=== PATIENT | female | born 1935 | race Caucasian/White ===

== ENCOUNTER → 2017-08-30 | Outpatient (CLI) | payer OTHER | LOC: BHLMT 14:00 | PROVIDERS: ATTEND Internal Medicine Cardiovascular Disease | DX: I48.92 Unspecified atrial flutter (principal) | CPT/HCPCS: 93306-PO ==

== ENCOUNTER 2017-09-21 13:43 | Day surgery (SDC) | payer OTHER ==
[2017-09-21] MEDS ORDERED: diphenhydrAMINE 25 MG CAP PO ONE (13:50)
[2017-09-21] MEDS ORDERED: DIAZEPAM 5 MG TAB PO ONE (13:50)
[2017-09-21] MEDS ORDERED: NS 1,000 ML IV ONE (13:50)
[2017-09-21] MEDS ORDERED: FAMOTIDINE 20 MG TAB PO ONE (13:50)
--- NOTE | 2017-09-21 14:30 | CPEKG ---
Heart Rate: 93 RR Interval: 645 QRSD Interval: 84 QT Interval: 388 QTC Interval: 483 QRS [place]: -62 T Wave [place]: -40 EKG Severity - ABNORMAL ECG - EKG Impression: ATRIAL FLUTTER, A-RATE 263 EKG Impression: LEFT ANTERIOR FASCICULAR BLOCK EKG Impression: NONSPECIFIC T ABNORMALITIES, DIFFUSE LEADS Electronically Signed By: Christos Encinas 22-Sep-2017 12:02:17
--- NOTE | 2017-09-21 14:35 | PDHPUP ---
History & Physical Update H&P update statement: This history and physical update is based on an assessment of the patient which was completed after admission or registration (within 24 hours), but prior to the surgery/procedure. H&P update: H&P reviewed & patient examined, no change in patient's condition since H&P completed
[2017-09-21 14:39] LABS: INR 1.34 (0.83-1.16); PROTIME(PATIENT) 16.8 SEC (12.0-15.0)
[2017-09-21] MEDS ORDERED: PROPOFOL 200 MG/20 ML VIAL ONE (15:11)
[2017-09-21] MEDS ORDERED: NALOXONE HCL 0.4 MG/ML INJ IVP PRN (15:46)
--- NOTE | 2017-09-21 15:46 | PDANEPAE ---
ANE History of Present Illness 82 year old with PMH significant for atrial flutter and valvular disease with mitral, aortic, and tricuspid regurgitation. Echo 08/2017 with EF of 68%. Other medical problems include GERD, Grave's Disease, CHETNA. She has had anesthesia in the past without difficulty. ANE Past Medical History - Pulmonary History Hx Sleep Apnea: Yes ANE Review of Systems Review of Systems: ANE Patient History - Allergies Allergies/Adverse Reactions: aspirin Allergy (Verified 09/21/17 11:58) Penicillins Allergy (Verified 09/21/17 11:58) Sulfa (Sulfonamide Antibiotics) Allergy (Verified 09/21/17 11:58) sulfacetamide [From Sulfamide] Allergy (Verified 09/21/17 11:58) - Smoking Hx Smoking Status: Never smoked ANE Labs/Vital Signs - Labs Result Diagrams: 09/21/17 14:15 - Vital Signs Height: 165.1 cm Weight: 86.183 kg ANE Physical Exam - Airway Neck exam: short neck Mallampati Score: Class 4 Mouth exam: poor dentition, small mouth opening - Pulmonary Pulmonary: no respiratory distress - Cardiovascular Cardiovascular: irregularly irregular - ASA Status ASA Status: III
--- NOTE | 2017-09-21 15:46 | POSTANESTH ---
Post Anesthetic Evaluation Cardiovascular Status: Normal, Stable Respiratory Status: Normal, Stable Level of Consciousness/Mental Status: Can Participate in Eval Pain Control: Adequate, Prn Tx Ordered Nausea/Vomiting Control: Adequate, Prn Tx Ordered Complications Possibly Related to Anesthesia: None Noted
--- NOTE | 2017-09-21 15:47 | CPEKG ---
Heart Rate: 79 RR Interval: 759 P-R Interval: 220 QRSD Interval: 82 QT Interval: 412 QTC Interval: 473 P [place]: 36 QRS [place]: -40 T Wave [place]: -2 EKG Severity - ABNORMAL ECG - EKG Impression: SINUS RHYTHM EKG Impression: MULTIPLE VENTRICULAR PREMATURE COMPLEXES EKG Impression: FIRST DEGREE AV BLOCK EKG Impression: LEFT ANTERIOR FASCICULAR BLOCK EKG Impression: BORDERLINE T ABNORMALITIES, ANTERIOR LEADS Electronically Signed By: Christos Encinas 22-Sep-2017 12:01:58
--- NOTE | 2017-09-21 16:26 | PDTEE1 ---
SCAR Cardioversion Procedure Procedure: electrical cardioversion Indications: other (atrial flutter) Consent: signed and in chart Anticoagulation: xarelto Procedural Details: Pads were placed in anterior-posterior position. SCAR probe was advanced and standard images obtained. There is no evidence of left atrial or left atrial appendage thrombus. Synchronized cardioversion attempt #1: 200J Results: normal sinus rhythm Conclusions: successful SCAR cardioversion
== END 2017-09-21 16:55 | disposition home or self-care (01) ==
LOC: FCATH 13:43
PROVIDERS: ATTEND Internal Medicine Interventional Cardiology
PROC: 5A2204Z Restoration of Cardiac Rhythm, Single (ICD-10-PCS; principal; 2017-09-21)
PROC: B245ZZ4 Ultrasonography of Left Heart, Transesophageal (ICD-10-PCS; principal; 2017-09-21)
DX: I48.92 Unspecified atrial flutter (principal); I08.3 Combined rheumatic disorders of mitral, aortic and tricuspid valves; K21.9 Gastro-esophageal reflux disease without esophagitis; G47.33 Obstructive sleep apnea (adult) (pediatric); Z79.01 Long term (current) use of anticoagulants; Z88.0 Allergy status to penicillin; Z88.2 Allergy status to sulfonamides
CPT/HCPCS: J2704

== ENCOUNTER → 2018-02-14 | Outpatient (CLI) | payer OTHER, BC | LOC: BHLMT 11:00 | PROVIDERS: ATTEND Internal Medicine Interventional Cardiology | DX: I48.92 Unspecified atrial flutter (principal) | CPT/HCPCS: 93225-PO; 93226-PO ==

== ENCOUNTER → 2018-08-29 | Outpatient (CLI) | payer OTHER, BC | LOC: BHLMT 10:45 | PROVIDERS: ATTEND Internal Medicine Cardiovascular Disease | DX: I48.92 Unspecified atrial flutter (principal); I34.0 Nonrheumatic mitral (valve) insufficiency | CPT/HCPCS: 93306-PO ==